=== PATIENT | female | born 1950 | race Caucasian/White ===

== ENCOUNTER 2018-03-30 03:06 | Inpatient (IN) | payer OTHER ==
[~2018-03-30] VITALS: Ht 172.7 cm; Wt 127.9 kg
[~2018-03-30 03:06] MED LIST: CIPROFLOXACIN500 M2 PO; DOXYCYCLINE MON50 M2 PO; FLAGYL500 MG PO; LASIX20 M1 PO; MOBIC15 M1 PO; ONE DAILY MULT1 EAC2 PO; PERCOCET 5-3251 EACH PO; TRAMADOL HCL50 M1 PO; TYLENOL EXTRA500 M2 PO; VITAMIN D2000 UNI1 PO; ZOFRAN ODT4 M1 SL
[2018-03-30] MEDS ORDERED: MOBIC15 M1 PO (09:36)
[2018-03-30] MEDS ORDERED: DOXYCYCLINE HYC50 M1 PO (09:36)
--- NOTE | 2018-03-30 14:21 | Admission Core Measures ---
Acute Coronary Syndrome (CM) ACS Core Measures Acute Coronary Syndrome Diagnosis No Congestive Heart Failure (NEW) CHF Core Measures Congestive Heart Failure Diagnosis No Cerebrovascular Accident CVA Core Measures CVA/TIA Diagnosis No Venous Thromboembolism VTE Core Eleni (View Protocol) VTE Risk Factors Surgery No Mechanical VTE Prophylaxis d/t N/A MechProphylax Ordered No VTE Pharm Prophylaxis d/t NA PharmProphylax ordered Problem List As ranked by this Provider includes Assessment & Plan 1. Carcinoid tumor of small intestine HOME MEDS Home Med List Doxycycline Hyclate 50 MG CAPSULE 50 MG PO BID ROSACEA (Reported) Meloxicam (Mobic) 15 MG TABLET 153 MG PO DAILY ARTHRITIS (Reported)
--- NOTE | 2018-03-30 14:24 | Patient Discharge Instructions ---
Discharge Instructions General Discharge Information You were seen/treated for: Carcinoid tumor, small bowel You had these procedures: Ileocecectomy on 03/30/18 Watch for these problems: Increased pain, fever, chills, redness, swelling or drainage from incision Call Surgeon to remove: [place] No bath, but you may shower: Yes Other wound care: Keep incision clean and dry Diet Continue normal diet: Yes Activity Full Activity/No Limits: No Activity Self Limited: Yes Pounds, do NOT lift more than: 10 (x 4 weeks) Other activity limits: No heavy lifting or strenous activity Acute Coronary Syndrome Inclusion Criteria At DC or during hospital stay patient has or had the following: ACS DIAGNOSIS No Discharge Core Measures Meds if any: Prescribed or Continued at Discharge Meds if any: NOT Prescribed or Continued at Discharge Congestive Heart Failure Inclusion Criteria At DC or during hospital stay patient has or had the following: CHF DIAGNOSIS No Discharge Core Measures Meds if any: Prescribed or Continued at Discharge Meds if any: NOT Prescribed or Continued at Discharge Cerebrovascular accident Inclusion Criteria At DC or during hospital stay patient has or had the following: CVA/TIA Diagnosis No Discharge Core Measures Meds if any: Prescribed or Continued at Discharge Meds if any: NOT Prescribed or Continued at Discharge Venous thromboembolism Inclusion Criteria VTE Diagnosis No VTE Type NONE VTE Confirmed by (Test) NONE Discharge Core Measures - Per Current guidelines, there needs to be overlap - treatment for the first 5 days of Warfarin therapy. - If discharged on Warfarin prior to 5 days of - overlap therapy, the patient will need to be - assessed for post discharge needs including - *Post discharge parental anticoagulation - *Warfarin and/or parental anticoagulation education - *Follow up date to check INR post discharge At least 5 days overlap therapy as Inpatient No Meds if any: Prescribed or Continued at Discharge Note: Overlap Therapy is Warfarin and Anticoagulant Meds if any: NOT Prescribed or Continued at Discharge
[2018-03-30 16:52] VITALS: BP 155/74
--- NOTE | 2018-03-30 17:47 | PN- Student ---
Ghulam Alberto 03/30/18 1724: Subjective Subjective: Sore abdomen localized to epigastric region. no nausea, no vomiting. no flatus or bowel movements. No appetite. no chest pain, no shortness of breath, no calf pain. Right eye pain, difficult to open eye. not photophobic. Objective Objective: Vitals: temp: 98.1 oral pulse: 100 respiratory rate: 20 BP: 155/74 pulse ox: 95% nasal cannula 2.0L Physical Exam: General: uncomfortable, no acute distress. alert and oriented to time and place HEENT: mild conjuntiva injection. no discharge. possible abrasion on inferior lateral conrea right eye. Pulm: clear to auscultation bilaterally Cardio: s1 and s2, RRR Abdomen: soft, obese, faint bowel sounds, tender around incision. dressing with mild serosang discharge Extremities: calves soft and nontender bilaterally. : clear urine in camp Results Results: Microbiology 03/30 1100 URINE OR: Urine Culture - RES Assessment/Plan Assessment: 68 year old female POD 0 s/p ileocecectomy with right eye pain concering for corneal abrasion. Plan: Flouroscene slit lamp eval for eye pain NPO on IV fluids Post op Unasyn x2 Zofran for nausea prn Tylenol and or toradol and or Morphine for pain PRN DVT prophylaxis ALPS and Heparin Encourage OOB GI prophylaxis Camp inplace, likely d/c tomorrow Discuss with preceptor Felipe Dubon 03/30/18 [id number]: Assessment/Plan Plan: Seen and examined with Ghulam ESPINOZA. Agree with above. Pyle lamp confirmed coneal abrasion. Started on erythromycin opth ointment.
[2018-03-30 18:14] VITALS: BP 156/68
[2018-03-30 23:55] VITALS: BP 128/60
[2018-03-31 04:00] VITALS: BP 132/70
--- NOTE | 2018-03-31 08:12 | PN- General Surgery ---
See Addendum Subjective Subjective: No complaints. Pain controlled. No flatus / bms. No nausea. Denies dizziness. No shortness of breath. No chest pains. Objective Vital Signs and I&Os Vital Signs Date Time Temp Pulse Resp B/P B/P Pulse O2 O2 Flow FiO2 Mean Ox Delivery Rate 03/31 0400 98.1 80 18 132/70 96 Nasal Cannula 03/31 0000 95 Nasal 2.0L Cannula 03/30 2355 97.7 83 18 128/60 95 Nasal Cannula 03/30 2201 Nasal 2.0L Cannula 03/30 1814 97.4 88 18 156/68 98 03/30 1652 98.1 100 20 155/74 95 Nasal 2.0L Cannula 03/30 1636 95 Nasal 2.0L Cannula Intake & Output 03/31 1600 03/31 0800 03/31 0000 03/30 1600 03/30 0800 03/30 0000 Intake Total 875 375 Output Total 850 Balance 25 375 Intake, IV 875 375 Number 0 Bowel Movements Output, Urine 850 Patient 282 lb 282 lb Weight Physical Exam: General - alert & oriented x 3. comfortable. no acute distress. Lungs - clear bilaterally. no w/r/r. Cardiac - s1s2. reg. Abdomen - midline dressing stained, but intact. expected serjio-incisional tenderness. - camp draining clear, yellow urine. Extremities - warm bilaterally. no c/c/e. calves soft and nontender b/l. Current Medications: Current Medications Sig/Jody Start time Last Medication Dose Route Stop Time Status Admin Acetaminophen 1,000 MG Q6H 03/30 1700 AC 03/31 N/A 1 UNIT IV 03/31 1114 0548 Ampicillin Sodium/ 3,000 MG Q6 03/30 1800 DC 03/31 Sulbactam Sodium IV 03/31 0028 0014 Sodium Chloride 100 ML Ampicillin Sodium/ 3,000 MG ONCE 03/30 0000 DC Sulbactam Sodium IV 03/30 2359 Artificial Tears 2 GTT 4 TIMES/DAY PRN 03/31 0815 UNVr OPH Dextrose/Sodium 1,000 ML Q8H 03/30 1700 r 03/31 Chloride IV 0233 Erythromycin 1 GIO 4 TIMES/DAY 03/30 1812 AC 03/30 OPH 2327 Fentanyl Citrate 250 MCG .STK-MED ONE 03/30 1031 DC IM 03/30 1032 Heparin Sodium 5,000 UNIT Q8 03/30 2200 AC 03/31 (Porcine) SC 0547 Hydromorphone HCl 2 MG .STK-MED ONE 03/30 1031 DC IM 03/30 1032 Ketorolac 15 MG Q6P PRN 03/30 1700 DC Tromethamine IV Midazolam HCl 2 MG .STK-MED ONE 03/30 1032 DC IM 03/30 1033 Morphine Sulfate 2 MG Q4-6 PRN PRN 03/30 1700 AC IV Morphine Sulfate 4 MG Q4-6 PRN PRN 03/30 1700 AC 03/31 IV 0249 Morphine Sulfate 6 MG Q4-6 PRN PRN 03/30 1700 AC IV Nystatin 1 GIO TID 03/31 0900 UNVr TOP Ondansetron HCl 4 MG Q6P PRN 03/30 1700 AC 03/31 IV 0014 Pantoprazole Sodium 40 MG DAILY 03/31 0900 AC IV Assessment/Plan Assessment/Plan This 68 year old female with hx morbid obesity and arthritis, is POD#1 s/p open ileocecectomy for carcinoid tumor npo / ivf (decreased rate to 100mls/hr) iv morphine / tylenol prn pain hep sc - dvt ppx protonix - gi ppx d/c camp catheter add nystatin powder TID to infra-mammary folds for yeast continue erythromycin ointment / natural tears prn comfort, for R eye corneal abrasion f/u labs IST will d/w Core Measures Venous Thromboembolism VTE Risk Factors Surgery No Mechanical VTE Prophylaxis d/t N/A MechProphylax Ordered No VTE Pharm Prophylaxis d/t NA PharmProphylax ordered
[2018-03-31 08:55] VITALS: BP 135/64
[2018-03-31 09:39] LABS: ABSOLUTE BASOPHIL COUNT 0 /CUMM (0.0-0.2); ABSOLUTE EOSINOPHIL COUNT 0 /CUMM (0.0-0.7); ABSOLUTE GRANULOCYTE CT 10.2 /CUMM (1.4-6.5); ABSOLUTE LYMPH COUNT 0.7 /CUMM (1.2-3.4); ABSOLUTE MONOCYTE COUNT 0.5 /CUMM (0.10-0.60); BASOPHIL % 0 % (0.0-2.0); EOSINOPHIL % 0 % (0-5); HEMATOCRIT 39.6 % (37-47); MEAN CORPUSCULAR HGB 27.1 PG (27.0-31.0); MEAN CORPUSCULAR HGB CONC 33.1 G/DL (33.0-37.0); MEAN CORPUSCULAR VOLUME 81.8 FL (81.0-99.0); MEAN PLATELET VOLUME 8.6 FL (7.4-10.4); PLATELET COUNT 206 /CUMM (130-400); RBC DISTRIBUTION WIDTH 16.9 % (11.5-14.5); RED BLOOD CELL CT 4.84 /CUMM (4.20-5.40); WHITE BLOOD CELL COUNT 11.4 /CUMM (4.8-10.8)
[2018-03-31 10:28] LABS: GRANULOCYTE % 89.7 % (42.2-75.2)
[2018-03-31 14:48] VITALS: BP 145/71
[2018-03-31 18:13] VITALS: BP 131/72
[2018-03-31 21:40] VITALS: BP 131/72
[2018-04-01 06:40] VITALS: BP 128/70
--- NOTE | 2018-04-01 07:11 | PN- General Surgery ---
See Addendum Subjective Subjective: Patient reports postop pain, which is well controlled. She reports baseline nausea in the morning, which is improved since surgery. She is tolerating sips of clears. She denies passing flatus or moving her bowels. She reports voiding and ambulating frequently. She reports improvement in right eye pain. Offers no other complaints. Objective Vital Signs and I&Os Vital Signs Date Time Temp Pulse Resp B/P B/P Pulse O2 O2 Flow FiO2 Mean Ox Delivery Rate 04/01 0640 98.5 93 18 128/70 96 Room Air 03/31 2140 98.3 98 18 131/72 96 03/31 1813 98.3 98 18 131/72 96 03/31 1448 97.3 83 20 145/71 96 03/31 0855 97.6 81 20 135/64 94 Intake & Output 04/01 0800 04/01 0000 03/31 1600 03/31 0800 03/31 0000 03/30 1600 Intake Total 582 641 4540 875 375 Output Total 300 1000 1150 850 Balance 220 -600 -40 25 375 Intake, IV 320 200 810 875 375 Intake, Oral 200 200 300 Number 0 0 Bowel Movements Output, Urine 300 1000 1150 850 Patient 282 lb 282 lb Weight Physical Exam: Gen - resting comfortably in nad Cardiac - S1S2 noted Lungs - CTAB Abd - soft, obese, midline incision closed with ramya healing well with no signs of infection or drainage, redressed with gauze and tape, bowel sounds presents, appropriately tender, no rebound or guarding Ext - alps in place, no edema or calf tenderness Current Medications: Current Medications Sig/Jody Start time Last Medication Dose Route Stop Time Status Admin Acetaminophen 1,000 MG Q6H 03/30 1700 DC 03/31 N/A 1 UNIT IV 03/31 1114 1114 Artificial Tears 2 GTT 4 TIMES/DAY PRN 03/31 0815 AC OPH Dextrose/Sodium 1,000 ML Q24H 03/31 1315 AC 03/31 Chloride IV 1540 Dextrose/Sodium 1,000 ML Q8H 03/30 1700 DC 03/31 Chloride IV 0839 Erythromycin 1 GIO 4 TIMES/DAY 03/30 1812 AC 03/31 OPH 2126 Heparin Sodium 5,000 UNIT Q8 03/30 2200 AC 04/01 (Porcine) SC 0625 Ketorolac 15 MG Q6P PRN 03/30 1700 DC Tromethamine IV Morphine Sulfate 2 MG Q4-6 PRN PRN 03/30 1700 AC IV Morphine Sulfate 4 MG Q4-6 PRN PRN 03/30 1700 AC 03/31 IV 0249 Morphine Sulfate 6 MG Q4-6 PRN PRN 03/30 1700 AC IV Nystatin 1 GIO TID 03/31 09 AC 03/31 TOP 2124 Ondansetron HCl 4 MG Q6P PRN 03/30 1700 AC 03/31 IV 0014 Pantoprazole Sodium 40 MG DAILY 03/31 09 AC 03/31 IV 0839 Assessment/Plan Assessment/Plan 68 F POD 2 s/p open ileocecectomy due to carcinoid tumor Cont sips of clears Cont IVF 40 ml/hr Pain regimen prn GI/DVT ppx on board Cont Nystatin power TID Cont Erythromycin ointment for right corneal abrasion Encourage ambulation, IS F/u labs Will d/w Dr. Clark Core Measures Venous Thromboembolism VTE Risk Factors Surgery No Mechanical VTE Prophylaxis d/t N/A MechProphylax Ordered No VTE Pharm Prophylaxis d/t NA PharmProphylax ordered
[2018-04-01 08:51] LABS: ABSOLUTE BASOPHIL COUNT 0 /CUMM (0.0-0.2); ABSOLUTE EOSINOPHIL COUNT 0 /CUMM (0.0-0.7); ABSOLUTE GRANULOCYTE CT 5.2 /CUMM (1.4-6.5); ABSOLUTE MONOCYTE COUNT 0.4 /CUMM (0.10-0.60); GRANULOCYTE % 75.8 % (42.2-75.2)
[2018-04-01 09:04] LABS: ABSOLUTE LYMPH COUNT 1.2 /CUMM (1.2-3.4); BASOPHIL % 0.4 % (0.0-2.0); EOSINOPHIL % 0.3 % (0-5); MEAN CORPUSCULAR HGB 26.9 PG (27.0-31.0); MEAN CORPUSCULAR HGB CONC 33.3 G/DL (33.0-37.0); MEAN PLATELET VOLUME 9.2 FL (7.4-10.4); PLATELET COUNT 196 /CUMM (130-400); RBC DISTRIBUTION WIDTH 17.2 % (11.5-14.5); RED BLOOD CELL CT 4.27 /CUMM (4.20-5.40); WHITE BLOOD CELL COUNT 6.8 /CUMM (4.8-10.8)
[2018-04-01 09:05] LABS: HEMATOCRIT 34.6 % (37-47)
[2018-04-01 15:24] VITALS: BP 130/80
[2018-04-01 20:00] VITALS: BP 159/74
[2018-04-01 22:00] VITALS: BP 159/74
[2018-04-02 06:20] VITALS: BP 156/64
--- NOTE | 2018-04-02 07:27 | PN- General Surgery ---
See Addendum Subjective Subjective: Vomited overnight. "Tired" from lack of sleep. Receiving zofran frequently for nausea. No flatus yet. No bms. Ambulating without dizziness. No shortness of breath. No chest pains. Voiding without difficulty. Objective Vital Signs and I&Os Vital Signs Date Time Temp Pulse Resp B/P B/P Pulse O2 O2 Flow FiO2 Mean Ox Delivery Rate 04/02 0620 99.3 107 18 156/64 95 Room Air 04/01 2200 98.4 108 17 159/74 94 04/01 2000 98.4 108 19 159/74 94 Room Air 04/01 1600 Room Air 04/01 1524 98.4 88 20 130/80 97 Intake & Output 04/02 0800 04/02 0000 04/01 1600 04/01 0800 04/01 0000 03/31 1600 Intake Total 659 079 6956 676 314 3236 Output Total 950 3979 236 0427 1150 Balance -710 360 120 220 -600 -40 Intake, IV 240 320 200 810 Intake, Oral 930 021 0118 200 200 300 Number 0 0 Bowel Movements Output, Urine 950 1017 531 7481 1150 Physical Exam: General - alert & oriented x 3. comfortable. no acute distress. Lungs - decreased breath sounds b/l bases. clear. Cardiac - s1s2. tachy 100-110 Abdomen - soft. midline dry guaze dressing c/d/i (changed last night by ) Extremities - warm bilaterally. calves soft and nontender b/l. athrombics in place. Current Medications: Current Medications Sig/Jody Start time Last Medication Dose Route Stop Time Status Admin Acetaminophen 1,000 MG ONCE ONE 04/01 1115 DC 04/01 N/A 1 UNIT IV 04/01 1129 1117 Artificial Tears 2 GTT 4 TIMES/DAY PRN 03/31 0815 AC OPH Dextrose/Sodium 1,000 ML Q24H 03/31 1315 DC 03/31 Chloride IV 1540 Diphenhydramine HCl 50 MG DAILY NEEDED PRN 04/02 0730 AC IV Erythromycin 1 GIO 4 TIMES/DAY 03/30 1812 AC 04/01 OPH 2054 Heparin Sodium 5,000 UNIT Q8 03/30 2200 AC 04/02 (Porcine) SC 0602 Morphine Sulfate 2 MG Q4-6 PRN PRN 03/30 1700 AC IV Morphine Sulfate 4 MG Q4-6 PRN PRN 03/30 1700 AC 03/31 IV 0249 Morphine Sulfate 6 MG Q4-6 PRN PRN 03/30 1700 AC IV Nystatin 1 GIO TID 03/31 09 04/01 [facility] 2053 Ondansetron HCl 4 MG Q6P PRN 03/30 1700 AC 04/02 IV 0602 Pantoprazole Sodium 40 MG DAILY 03/31 09 AC 04/01 IV 0801 Potassium Chloride 20 MEQ Q13H 04/02 0730 AC Dextrose/Sodium 1,000 ML IV Chloride Results Last 48 Hours of Labs: Laboratory Tests 04/01 03/31 0715 0905 Chemistry Sodium (137 - 145 mmol/L) 142 140 Potassium (3.5 - 5.1 mmol/L) 3.5 4.1 Chloride (98 - 107 mmol/L) 109 H 104 Carbon Dioxide (22 - 30 mmol/L) 23 27 Anion Gap (5 - 16) 10 9 BUN (7 - 17 mg/dL) 4 L 7 Creatinine (0.5 - 1.0 mg/dL) 0.6 0.6 Estimated GFR (>60 ml/min) > 60 > 60 BUN/Creatinine Ratio (7 - 25 %) 6.7 L 11.7 Magnesium (1.6 - 2.3 mg/dL) 1.7 Hematology CBC w Diff NO MAN DIFF REQ NO MAN DIFF REQ WBC (4.8 - 10.8 /CUMM) 6.8 11.4 H RBC (4.20 - 5.40 /CUMM) 4.27 4.84 Hgb (12.0 - 16.0 G/DL) 11.5 L 13.1 Hct (37 - 47 %) 34.6 L 39.6 MCV (81.0 - 99.0 FL) 81.0 81.8 MCH (27.0 - 31.0 PG) 26.9 L 27.1 MCHC (33.0 - 37.0 G/DL) 33.3 33.1 RDW (11.5 - 14.5 %) 17.2 H 16.9 H Plt Count (130 - 400 /CUMM) 196 206 MPV (7.4 - 10.4 FL) 9.2 8.6 Gran % (42.2 - 75.2 %) 75.8 H 89.7 H Lymphocytes % (20.5 - 51.1 %) 18.0 L 6.0 L Monocytes % (1.7 - 9.3 %) 5.5 4.3 Eosinophils % (0 - 5 %) 0.3 0 Basophils % (0.0 - 2.0 %) 0.4 0 Absolute Granulocytes (1.4 - 6.5 /CUMM) 5.2 10.2 H Absolute Lymphocytes (1.2 - 3.4 /CUMM) 1.2 0.7 L Absolute Monocytes (0.10 - 0.60 /CUMM) 0.4 0.5 Absolute Eosinophils (0.0 - 0.7 /CUMM) 0 0 Absolute Basophils (0.0 - 0.2 /CUMM) 0 0 Assessment/Plan Assessment/Plan This 68 year old female with hx morbid obesity and arthritis, is POD#2 s/p open ileocecectomy for carcinoid tumor, post-op ileus will regress diet to npo. restart iv fluids minimize narcotics iv morphine / tylenol prn pain hep sc - dvt ppx oob/ambulation encouraged protonix - gi ppx nystatin powder TID to infra-mammary folds for yeast continue erythromycin ointment / natural tears prn comfort, for R eye corneal abrasion f/u labs (cbc added) IST dry guaze dressing change daily, midline incision (changed last night by ) d/w Core Measures Venous Thromboembolism VTE Risk Factors Surgery No Mechanical VTE Prophylaxis d/t N/A MechProphylax Ordered No VTE Pharm Prophylaxis d/t NA PharmProphylax ordered
[2018-04-02 08:38] LABS: ABSOLUTE BASOPHIL COUNT 0 /CUMM (0.0-0.2); ABSOLUTE EOSINOPHIL COUNT 0 /CUMM (0.0-0.7); ABSOLUTE GRANULOCYTE CT 6.2 /CUMM (1.4-6.5); ABSOLUTE LYMPH COUNT 0.9 /CUMM (1.2-3.4); ABSOLUTE MONOCYTE COUNT 0.4 /CUMM (0.10-0.60); BASOPHIL % 0.2 % (0.0-2.0); EOSINOPHIL % 0.1 % (0-5); GRANULOCYTE % 82.8 % (42.2-75.2); HEMATOCRIT 38.4 % (37-47); MEAN CORPUSCULAR HGB 27.1 PG (27.0-31.0); MEAN CORPUSCULAR HGB CONC 33.6 G/DL (33.0-37.0); MEAN CORPUSCULAR VOLUME 80.7 FL (81.0-99.0); MEAN PLATELET VOLUME 8.1 FL (7.4-10.4); PLATELET COUNT 236 /CUMM (130-400); RBC DISTRIBUTION WIDTH 17.1 % (11.5-14.5); RED BLOOD CELL CT 4.76 /CUMM (4.20-5.40); WHITE BLOOD CELL COUNT 7.5 /CUMM (4.8-10.8)
--- NOTE | 2018-04-02 08:49 | Operative Report ---
Operative/Inv Procedure Report Surgery Date: 03/30/18 Name of Procedure: Right hemicolectomy Pre-Operative Diagnosis: Distal small bowel carcinoid Post-Operative Diagnosis: Same Estimated Blood Loss: less than 50ml Surgeon/Industrial Economics Teacher: Eduardo FERNANDO,Nikolay ALEJO Anesthesia: general endotracheal tube Operative/Procedure Note Note: Patient was positioned supine, after induction of general anesthesia, a tap block was performed, IV antibiotics were given and then the abdomen was clipped prepped and draped from the nipples to the groin in the usual sterile fashion. A midline epigastric incision was made with a 10 blade based on preoperative CT scan and the abdominal habitus. The incision was deepened with cautery through Eulalio's fascia clearing off the linea alba first then carefully incising it avoiding injury to the underlying bowel. The abdomen was explored there was no free fluid peritoneal studding or obvious liver metastases. The distal small bowel was thickened and seemed full, the tumor was in the terminal ileum but it seemed to extend into the cecum too. The cecum was gently grasped and retracted towards the incision, opening up the lateral and posterior attachments to the retroperitoneum with cautery including those to the terminal ileum and appendix continuing the retraction superiorly and mobilizing inferiorly and a little medially as well and then continuing laterally up towards the hepatic flexure along the white line of Toldt. Here cares taken to avoid injury to the ureter and gonadal vessels which are identified and left alone in a deeper plane This is continued back and forth mostly with cautery and a little bit of blunt dissection in the avascular areas until it starts to come up off Gerota's fascia and then the duodenum, the higher you get cares taken to avoid pulling because of the tension on the middle colic vessels. Next the hepatic flexure is taken down with the aid of LigaSure where it's more vascular and care is taken to distinguish between an separate the mesocolon and the omentum here. A point on the transverse colon is marked by looping and 0 Vicryl suture around it, approximating where the right branch of the middle colic artery comes off, and the omentum is divided here as well. On the other end, the terminal ileum was similarly marked in this case 20 cm proximal to the cecum and in both areas, a small window was made on the mesenteric border to juarez the lines of transection of the mesentery. Having identified and divided with LigaSure, the right branch of the middle colic artery, there's a bare area in the mesentery next to the duodenum that leads to the main pedicles of the right colon. This right colic pedicle is identified in the mesenteric fat around it is partially cleared off. On the other side the distal small bowel mesentery is scored on both sides and then divided with LigaSure until the ileocolic pedicle was was identified and also cleared off some of the fat. This is small bowel mesentery was thickened and when we divided it there were 2 points that needed to be oversewn with for hemostasis with 3-0 silk suture. These 2 adjacent pedicles are isolated near their origins and divided separately with the LigaSure after first suture ligating them with 2-0 Vicryl. Next a side to side functional end to end stapled anastomosis was made using a GINA stapler with two 80 mm cartridges, the first to make a common enterotomy, and the second to "T" -off the first. Before actually firing the stapler first we made sure that the distal small bowel and transverse colon are lined up parallel not twisted or stretched and that the mesenteric fat is cleared off circumferentially where the ramya will go, we placed a 3-0 silk suture at the top and at the bottom to line them up, then make adjacent enterotomies on the antimesenteric borders inserted the stapler check that fat hasn't rolled in posteriorly, and fired. The second firing which completes the anastomosis and the resection, is checked for hemostasis with cautery but also the corners are dunked with 3-0 silk Lemberts. Next the abdomen is irrigated checked for hemostasis small bowel is run and checked for any twisting and positioned down and away from the mesenteric defect , repeatedly checking the anastomosis for any bleeding or twisting. During this step I noticed a small 1 cm pinching type deserosalization of the mid small bowel I examined it and felt that there was a tiny pinhole and repaired / oversewed it with 4 interrupted Lembert sutures. The incision is closed in layers using 2 continuous runs of single 0 Maxon suture for the fascia then the subcutaneous layer is irrigated again, reapproximated subdermally with interrupted 3-0 Vicryl, followed by skin ramya and an island dressing. EBL minimal lap and sponge counts correct wound expectancy was clean- contaminated, IV fluids crystalloid complications none, patient tolerated the procedure well and was returned to the recovery room in satisfactory condition.
--- NOTE | 2018-04-02 10:13 | CT SCAN REPORT ---
EXAMINATION: CT ABDOMEN AND PELVIS WITHOUT CONTRAST CLINICAL INFORMATION: Postop ileocecectomy with nausea and vomiting COMPARISON: CT enterography from 02/02/2018 TECHNIQUE: Multidetector volumetric imaging was performed from the superior aspect of the liver through the pubic symphysis. Sagittal and coronal reformatted images were obtained on the technologist's workstation. DLP: 1655 mGy-cm FINDINGS: LUNG BASES: There is scattered areas of subsegmental atelectasis at both lung bases. There is no large pleural effusion LIVER, GALLBLADDER, AND BILIARY TREE: The liver is normal in size, shape, and attenuation. No focal hepatic lesion or biliary ductal dilatation is present. The gallbladder is unremarkable with no evidence of radiopaque gallstones, gallbladder wall thickening, or obvious pericholecystic inflammatory changes. PANCREAS: The pancreas is normal and unchanged in appearance SPLEEN: Spleen is normal in size and attenuation with no focal findings ADRENAL GLANDS: Small left adrenal nodule unchanged. KIDNEYS AND URETERS: Multiple peripelvic cysts in the kidneys along with prominent extrarenal pelvis in the left unchanged. No stone or other acute finding. BLADDER: The urinary bladder is incompletely distended and unremarkable in appearance. A small amount of intraluminal air may be related to prior catheterization. GASTROINTESTINAL TRACT: Patient has had a ileocecectomy with postsurgical changes in the right lower quadrant. There is an enterocolic anastomotic suture line in the right lower quadrant. This appears grossly intact with no evidence for obstruction at the anastomosis. A small amount of adjacent free fluid. No abnormal fluid collection or abscess is identified. There is gas throughout large and small bowel to the level of the rectum. Mildly distended large and small bowel loops throughout with relative decompression of the descending colon favors postoperative ileus. No definitive mechanical obstruction is seen at this time. There is no intraperitoneal free air. There is a moderate amount of free fluid anterior and posterior to the uterus which is presumably postoperative. No loculated fluid collection is identified at this time. There is a hiatal hernia which is unchanged from preoperative ABDOMINAL WALL: There is a midline incision in the anterior abdominal wall with associated sutures likely related to recent surgery. No hernia is seen. LYMPH NODES: No bulky adenopathy VASCULAR: No acute findings are seen in the vascular structures. PELVIC VISCERA: No masses are identified in the pelvis. Postoperative free fluid as described above OSSEOUS STRUCTURES: No acute bony abnormality. There are extensive degenerative changes in the spine with a chronic treated compression deformity of the L2 vertebra, unchanged from prior. IMPRESSION: Post ileocecectomy changes in the right lower quadrant as described. Mild to moderate distention of fluid-filled large and small bowel loops is most consistent with postoperative ileus rather than mechanical obstruction. Moderate amount of free fluid in the pelvis anterior posterior to the uterus. This is likely postoperative. No loculated collection or abscess. Bibasilar areas of subsegmental atelectasis in the lungs. Hiatal hernia unchanged.
[2018-04-02 15:50] VITALS: BP 133/70
[2018-04-02 22:16] VITALS: BP 141/67
[2018-04-03 06:07] VITALS: BP 120/68
--- NOTE | 2018-04-03 09:14 | PN- General Surgery ---
Subjective Subjective: IN BED, NO PAIN. NO NAUSEA, TOLERATING CLEARS. LOOSE STOOLS AMBULATING, VOIDING Objective Vital Signs and I&Os Vital Signs Date Time Temp Pulse Resp B/P B/P Pulse O2 O2 Flow FiO2 Mean Ox Delivery Rate 04/03 0607 98.5 82 20 120/68 93 Room Air 04/02 2216 98.7 78 18 141/67 95 04/02 1550 98.2 80 20 133/70 97 Intake & Output 04/03 1600 04/03 0800 04/03 0000 04/02 1600 04/02 0800 04/02 0000 Intake Total 0 200 700 240 360 Output Total 400 1050 Balance 0 200 300 -810 360 Intake, IV 700 Intake, Oral 0 200 240 360 Number 1 1 0 Bowel Movements Output, 100 Emesis Output, Urine 400 950 Patient 282 lb Weight Physical Exam: gen- NAD resp- clear cardiac- RRR abd- obese, +BS, soft, NT. dressing changed, minimal sang drainage on dressing, ramya in place, no signs of infection. Current Medications: Current Medications Sig/Jody Start time Last Medication Dose Route Stop Time Status Admin Acetaminophen 1,000 MG Q6P PRN 04/02 0745 04/02 N/A 1 UNIT IV 0805 Artificial Tears 2 GTT 4 TIMES/DAY PRN 03/31 0815 AC OPH Diphenhydramine HCl 50 MG DAILY NEEDED PRN 04/02 0730 AC 04/02 IV 2055 Erythromycin 1 GIO 4 TIMES/DAY 03/30 1812 04/03 OPH 0830 Heparin Sodium 5,000 UNIT Q8 03/30 2200 04/03 (Porcine) SC 0635 Magnesium Sulfate 1 GM ONCE ONE 04/02 1500 DC 04/02 Dextrose/Water 100 ML IV 04/02 1859 1718 Morphine Sulfate 2 MG Q4-6 PRN PRN 03/30 1700 AC IV Morphine Sulfate 4 MG Q4-6 PRN PRN 03/30 1700 AC 03/31 IV 0249 Morphine Sulfate 6 MG Q4-6 PRN PRN 03/30 1700 AC IV Nystatin 1 GIO TID 03/31 0900 04/03 TOP 0830 Ondansetron HCl 4 MG Q6P PRN 03/30 1700 AC 04/02 IV 0602 Pantoprazole Sodium 40 MG DAILY 03/31 0900 04/03 IV 0830 Patient Medication 1 ED ONE ONE 04/02 1515 DC 04/02 [facility] ED 04/02 151 2055 Potassium Chloride 20 MEQ Q13H 04/02 0730 DC 04/02 Dextrose/Sodium 1,000 ML IV 0805 Chloride Results Last 48 Hours of Labs: Laboratory Tests 04/03 04/02 04/02 0640 0823 0700 Chemistry Sodium (137 - 145 mmol/L) 142 143 Potassium (3.5 - 5.1 mmol/L) 3.6 3.7 Chloride (98 - 107 mmol/L) 108 H 108 H Carbon Dioxide (22 - 30 mmol/L) 25 26 Anion Gap (5 - 16) 8 10 BUN (7 - 17 mg/dL) 8 5 L Creatinine (0.5 - 1.0 mg/dL) 0.6 0.6 Estimated GFR (>60 ml/min) > 60 > 60 BUN/Creatinine Ratio (7 - 25 %) 13.3 8.3 Magnesium (1.6 - 2.3 mg/dL) 2.0 1.7 Hematology CBC w Diff NO MAN DIFF REQ WBC (4.8 - 10.8 /CUMM) 7.5 RBC (4.20 - 5.40 /CUMM) 4.76 Hgb (12.0 - 16.0 G/DL) 12.9 Hct (37 - 47 %) 38.4 MCV (81.0 - 99.0 FL) 80.7 L MCH (27.0 - 31.0 PG) 27.1 MCHC (33.0 - 37.0 G/DL) 33.6 RDW (11.5 - 14.5 %) 17.1 H Plt Count (130 - 400 /CUMM) 236 MPV (7.4 - 10.4 FL) 8.1 Gran % (42.2 - 75.2 %) 82.8 H Lymphocytes % (20.5 - 51.1 %) 11.9 L Monocytes % (1.7 - 9.3 %) 5.0 Eosinophils % (0 - 5 %) 0.1 Basophils % (0.0 - 2.0 %) 0.2 Absolute Granulocytes (1.4 - 6.5 /CUMM) 6.2 Absolute Lymphocytes (1.2 - 3.4 /CUMM) 0.9 L Absolute Monocytes (0.10 - 0.60 /CUMM) 0.4 Absolute Eosinophils (0.0 - 0.7 /CUMM) 0 Absolute Basophils (0.0 - 0.2 /CUMM) 0 Assessment/Plan Assessment/Plan This 68 year old female with hx morbid obesity and arthritis, is POD#3 s/p open ileocecectomy for carcinoid tumor ADVANCE TO LOW RESIDUE minimize narcotics hep sc - dvt ppx oob/ambulation encouraged protonix - gi ppx nystatin powder TID to infra-mammary folds for yeast IST possible DC to home later today if tolerated low residue diet today d/w Core Measures Venous Thromboembolism VTE Risk Factors Surgery No Mechanical VTE Prophylaxis d/t N/A MechProphylax Ordered No VTE Pharm Prophylaxis d/t NA PharmProphylax ordered
[2018-04-03] MEDS ORDERED: PERCOCET 5-3251 EACH PO (13:51)
== END 2018-04-03 15:20 | DRG 330 ==
LOC: SDA 03:06 → 2NA 03:06 → ENRESERV 15:13 → ENTRNSPT 16:16 → EDTRNSPTSTS 16:18 → EDTRNSPT 16:18 → 2NA 16:24 → CMPTRNSPT 16:39 → ENTRNSPT 04-03 15:05 → 2NA 04-03 15:20 → EDTRNSPTSTS 04-03 15:21 → EDTRNSPT 04-03 15:21 → CMPTRNSPT 04-03 15:32
PROVIDERS: Physician Assistant; Physician Assistant Surgical
PROC: 0DBB0ZZ Excision of Ileum, Open Approach (ICD-10-PCS; principal; 2018-03-30)
PROC: 0DBH0ZZ Excision of Cecum, Open Approach (ICD-10-PCS; 2018-03-30)
PROC: 3E0T3BZ Introduction of Anesthetic Agent into Peripheral Nerves and Plexi, Percutaneous Approach (ICD-10-PCS; 2018-03-30)
DX: C7A.012 Malignant carcinoid tumor of the ileum (principal); E66.01 Morbid (severe) obesity due to excess calories; Z68.41 Body mass index [BMI] 40.0-44.9, adult; K91.30 Postprocedural intestinal obstruction, unspecified as to partial versus complete; S05.01XA Injury of conjunctiva and corneal abrasion without foreign body, right eye, initial encounter; Z96.651 Presence of right artificial knee joint
CPT/HCPCS: 2NAP; 36415; 36592; 74176; 82436; 87086; J0131; J1200; J1644; J2405; J3490; J7042